=== PATIENT | male | born 1975 | race American Indian/Alaskan Native ===

== ENCOUNTER 2023-12-21 12:28 | Outpatient (CLI) | payer OTHER | END 2023-12-21 12:40 | disposition home or self-care (01) | LOC: MRI 12:28 | PROVIDERS: ATTEND Specialist | DX: R53.81 Other malaise (principal) | CPT/HCPCS: 70551 ==

== ENCOUNTER 2023-12-22 13:56 | Outpatient (CLI) | payer OTHER | END 2023-12-22 14:01 | disposition home or self-care (01) | LOC: RAD 13:56 | PROVIDERS: ATTEND Specialist | DX: R53.83 Other fatigue (principal) ==